=== PATIENT | male | born 1965 | race African-American/Black ===

== ENCOUNTER 2020-07-17 22:54 | Emergency (ER) | payer OTHER, SELFPAY ==
[2020-07-17 22:55] VITALS: BP 203/112; PULSE 82; RESP 19; TEMP 36.3; O2SAT 100
[2020-07-17 23:01] VITALS: BP 159/103; PULSE 77; RESP 18; TEMP 36.4; O2SAT 100
--- NOTE | 2020-07-17 23:39 | ED.GENADULT ---
HPI - General Adult General Chief complaint: Dental/Oral Stated complaint: left side jaw pain Time Seen by Provider: 07/17/20 23:28 History of Present Illness HPI narrative: Patient is a 54-year-old gentleman who presents the emergency department with chief complaint of dental pain. Patient reports that he has pain in the upper molar and a lower molar. Patient states he has just got insurance and is trying to see a dentist patient states that he feels as though he needs to be on antibiotics for his infection in his tooth. Related Data Allergies Allergy/AdvReac Type Severity Reaction Status Date / Time No Known Allergies Allergy Verified 07/17/20 23:06 Review of Systems Review of Systems: Narrative: A 10 system review of systems was completed on the patient and is negative except for what is stated in the HPI. Nursing and ancillary documentation was reviewed. Exam Narrative: Exam Narrative: GENERAL: Well-appearing, well-nourished, and in no acute distress. HEAD: Normocephalic, atraumatic. EYES: PERRLA and EOMI. ENT: Nares clear, no rhinorrhea or epistaxis. Mucous membranes moist. There are multiple dental caries NECK: Supple. CHEST: Clear to auscultation. No respiratory distress. HEART: Regular rate and rhythm. No murmur heard. Normal peripheral pulses. ABDOMEN: Soft, nontender, nondistended, normal active bowel sounds. EXTREMITIES: Normal range of motion. No edema. SKIN: Warm, dry, no rash. NEURO: No focal deficits. Alert and oriented x3. PSYCH: Normal mood and affect. Course Vital Signs Vital signs: Vital Signs Temperature 36.3 C L 07/17/20 22:55 Pulse Rate 82 07/17/20 22:55 Respiratory Rate 19 07/17/20 22:55 Blood Pressure 203/112 H 07/17/20 22:55 Pulse Oximetry 100 07/17/20 22:55 Temperature 36.4 C 07/17/20 23:01 Pulse Rate 77 07/17/20 23:01 Respiratory Rate 18 07/17/20 23:01 Blood Pressure 159/103 H 07/17/20 23:01 Pulse Oximetry 100 07/17/20 23:01 Medical Decision Making Vital Signs Vital Signs: Vital Signs Temperature 36.3 C L 07/17/20 22:55 Pulse Rate 82 07/17/20 22:55 Respiratory Rate 19 07/17/20 22:55 Blood Pressure 203/112 H 07/17/20 22:55 Pulse Oximetry 100 07/17/20 22:55 Temperature 36.4 C 07/17/20 23:01 Pulse Rate 77 07/17/20 23:01 Respiratory Rate 18 07/17/20 23:01 Blood Pressure 159/103 H 07/17/20 23:01 Pulse Oximetry 100 07/17/20 23:01 Discharge Plan Discharge Clinical Impression: Dental caries, Toothache Patient Disposition: Home, Self-Care Condition: Stable Instructions: Antibiotic Form, Toothache (ED) Prescriptions: New amoxicillin 500 mg capsule 500 mg PO Q12H Qty: 20 RF: 0 ibuprofen 800 mg tablet 800 mg PO TID PRN (Reason: pain) Qty: 21 RF: 0 Follow-up/Referrals: Ishan Craven MD [Physician] - 1 Week PHYSICIAN,QUALITY IMPROVEMENT MANAGER [Primary Care Provider] - Stand Alone Forms: Work/School Release IP Time of Disposition: 23:44
[2020-07-17] MEDS: AMOXICILLIN 500 MG CAPSULE PO (23:56)
[2020-07-17] MEDS: IBUPROFEN 400 MG TABLET 800 MG PO (23:56)
== END 2020-07-18 00:01 | disposition home or self-care (01) ==
PROVIDERS: Emergency Provider Emergency Medicine
DX: K02.9 Dental caries, unspecified (principal)
CPT/HCPCS: 99283; A9270